=== PATIENT | female | born 1960 | race Native Hawaiian/Other Pacific Islander ===

== ENCOUNTER 2016-07-24 07:36 | Outpatient (CLI) | payer OTHER ==
[~2016-07-24 07:36] MED LIST: CELEBREX200 MG PO; DIOVAN HCT320 MG/25 PO; HYDR-3182 PO; INSU100I2 SC; LEVO0.1224 PO; METF500T PO; METOPROLOL25 M1 PO; NEURONTIN 100M100 MG PO; NEXIUM40 M1 PO; PIOG30TA PO; SIMV20TA2 PO; TRAM50TA PO
== END 2016-07-24 08:36 | disposition home or self-care (01) ==
LOC: CT 07:36
DX: M54.2 Cervicalgia (principal); M54.5 Low back pain; M51.36 Other intervertebral disc degeneration, lumbar region; M50.33 Other cervical disc degeneration, cervicothoracic region

== ENCOUNTER 2016-10-13 08:53 | Emergency (ER) | payer OTHER ==
[~2016-10-13] VITALS: Ht 157.5 cm; Wt 149.7 kg
[2016-10-13 09:01] VITALS: TEMP 97.7
[2016-10-13 10:17] LABS: PLATELET COUNT 260 K/uL (152-353)
[2016-10-13 10:22] LABS: POTASSIUM 3.7 mmol/L (3.6-5.2); SODIUM 134 mmol/L (136-145)
[2016-10-13 12:20] VITALS: BP 150/82
== END 2016-10-13 12:21 | disposition home or self-care (01) ==
LOC: ED 08:53
DX: R42 Dizziness and giddiness (principal); R11.2 Nausea with vomiting, unspecified; R19.7 Diarrhea, unspecified
CPT/HCPCS: 36415; 80053; 81000; 82150; 83036; 83690; 85027; 86318; 96361; 96374; 99284; J1885

== ENCOUNTER 2016-12-17 11:37 | Outpatient (CLI) | payer OTHER | END 2016-12-17 19:17 | disposition home or self-care (01) | LOC: RAD 11:37 | DX: M25.551 Pain in right hip (principal) ==

== ENCOUNTER 2017-03-08 13:45 | Outpatient (CLI) | payer OTHER | END 2017-03-08 19:38 | disposition home or self-care (01) | LOC: US 13:45 | DX: I82.401 Acute embolism and thrombosis of unspecified deep veins of right lower extremity (principal) ==

== ENCOUNTER 2017-06-23 08:47 | Outpatient (CLI) | payer OTHER | END 2017-06-23 21:09 | disposition home or self-care (01) | LOC: MAMMO 08:47 | DX: Z12.31 Encounter for screening mammogram for malignant neoplasm of breast (principal) ==

== ENCOUNTER 2017-08-26 12:21 | Outpatient (CLI) | payer OTHER | END 2017-08-26 22:19 | disposition home or self-care (01) | LOC: RAD 12:21 | DX: M47.812 Spondylosis without myelopathy or radiculopathy, cervical region (principal) ==

== ENCOUNTER 2019-08-01 14:33 | Outpatient (CLI) | payer OTHER | END 2019-08-01 19:33 | disposition home or self-care (01) | LOC: MAMMO 14:33 | DX: Z12.31 Encounter for screening mammogram for malignant neoplasm of breast (principal) ==

== ENCOUNTER 2019-08-19 15:47 | Outpatient (CLI) | payer OTHER | END 2019-08-19 20:38 | disposition home or self-care (01) | LOC: LAB 15:47 | DX: K59.1 Functional diarrhea (principal) | CPT/HCPCS: 82272; 82705; 83630; 87015; 87045; 87324; 87328; 87329; 87449; 87899 ==

== ENCOUNTER 2019-08-28 09:00 | Observation (INO) | payer OTHER ==
[~2019-08-28] VITALS: Ht 154.9 cm; Wt 125.4 kg
[2019-08-28 10:44] LABS: PLATELET COUNT 276 K/uL (152-353)
[2019-08-28 11:17] LABS: POTASSIUM 4.1 mmol/L (3.6-5.2)
[2019-08-28 18:33] VITALS: BP 133/79; TEMP 97.6; Ht 154.9 cm; Wt 125.4 kg
[2019-08-28] MEDS ORDERED: LEVO0.1224 PO (18:55)
[2019-08-28] MEDS ORDERED: LEVO0.0723 PO (18:58)
[2019-08-28 20:00] VITALS: BP 122/65; TEMP 98.5
[2019-08-28] MEDS ORDERED: DICY10SY PO (21:05)
[2019-08-28] MEDS ORDERED: EC-NAPROSYN500 MG PO (21:09)
[2019-08-28 23:58] VITALS: BP 135/77; TEMP 98.3
[2019-08-29 04:00] VITALS: BP 133/66; TEMP 98.3
[2019-08-29 08:00] VITALS: BP 157/68; TEMP 97.4
[2019-08-29 12:00] VITALS: BP 154/76; TEMP 97.7
[2019-08-29 16:00] VITALS: BP 154/65; TEMP 98.4
[2019-08-29 16:40] LABS: PLATELET COUNT 209 K/uL (152-353)
[2019-08-29 16:43] LABS: POTASSIUM 3.8 mmol/L (3.6-5.2)
== END 2019-08-29 20:17 | disposition home or self-care (01) ==
LOC: MED/SURG 09:00
PROVIDERS: ADMIT Family Medicine
DX: E86.0 Dehydration (principal); R11.10 Vomiting, unspecified; R19.7 Diarrhea, unspecified; E13.49 Other specified diabetes mellitus with other diabetic neurological complication; I10 Essential (primary) hypertension; E03.8 Other specified hypothyroidism; E78.2 Mixed hyperlipidemia; E66.9 Obesity, unspecified; E11.65 Type 2 diabetes mellitus with hyperglycemia; J11.2 Influenza due to unidentified influenza virus with gastrointestinal manifestations
CPT/HCPCS: 80053; 81000; 81002; 82948; 83735; 85027; 87015; 87045; 87077; 87086; 87088; 87186; 87324; 87328; 87329; 87449; 87899; 96361; 96365; 96372; 96374; 96375; 99220; G0378; G0379; J1815; J2405; J2765; J3475; J3490

== ENCOUNTER 2019-09-05 11:13 | Inpatient (IN) | payer OTHER ==
[~2019-09-05] VITALS: Ht 154.9 cm; Wt 141.7 kg
[2019-09-05] VITALS (11 sets, daily range): BP systolic 110–141; BP diastolic 46–72; TEMP 98.5–98.9; Ht 154.9 cm; Wt 141.7 kg
[~2019-09-05 11:13] MED LIST changes: +DICY10SY PO; +EC-NAPROSYN500 MG PO; +LEVO0.0723 PO
[2019-09-05 13:30] LABS: POTASSIUM 4.1 mmol/L (3.6-5.2)
[2019-09-05 13:34] LABS: PLATELET COUNT 175 K/uL (152-353)
[2019-09-06] VITALS: BP 102/44; TEMP 98.8
[2019-09-06 04:00] VITALS: BP 142/55; TEMP 100.5
[2019-09-06 05:50] LABS: POTASSIUM 3.5 mmol/L (3.6-5.2)
[2019-09-06 05:56] LABS: PLATELET COUNT 136 K/uL (152-353)
[2019-09-06 08:00] VITALS: BP 96/48; TEMP 99.2
[2019-09-06 11:05] LABS: POTASSIUM 3.4 mmol/L (3.6-5.2)
[2019-09-06 12:00] VITALS: BP 122/60; TEMP 97.9
[2019-09-06 16:00] VITALS: BP 134/51; TEMP 98.2
[2019-09-06 17:41] LABS: POTASSIUM 3.3 mmol/L (3.6-5.2)
[2019-09-06 17:44] LABS: PLATELET COUNT 141 K/uL (152-353)
[2019-09-06 20:00] VITALS: BP 87/50; TEMP 99.9
[2019-09-07] VITALS (7 sets, daily range): BP systolic 89–153; BP diastolic 34–67; TEMP 98.1–98.8
[2019-09-07 05:40] LABS: PLATELET COUNT 136 K/uL (152-353)
[2019-09-07 05:58] LABS: POTASSIUM 3.7 mmol/L (3.6-5.2)
[2019-09-07 12:44] LABS: POTASSIUM 3.7 mmol/L (3.6-5.2)
[2019-09-08 03:59] VITALS: BP 127/52; TEMP 99.7
[2019-09-08 08:00] VITALS: BP 128/61; TEMP 98.4
[2019-09-08 08:37] LABS: PLATELET COUNT 105 K/uL (152-353)
[2019-09-08 08:53] LABS: POTASSIUM 3.3 mmol/L (3.6-5.2)
[2019-09-08 16:00] VITALS: BP 143/69; TEMP 98.4
[2019-09-08 20:00] VITALS: BP 139/65; TEMP 99
[2019-09-09] VITALS: BP 149/74; TEMP 99.8
[2019-09-09 04:00] VITALS: BP 134/60; TEMP 98.5
[2019-09-09 05:02] LABS: PLATELET COUNT 128 K/uL (152-353); POTASSIUM 3.2 mmol/L (3.6-5.2)
[2019-09-09 08:00] VITALS: BP 140/59; TEMP 98.3
[2019-09-09 12:00] VITALS: BP 157/74; TEMP 97.9
[2019-09-09 16:00] VITALS: BP 153/67; TEMP 97.6
[2019-09-09 19:55] VITALS: BP 145/60; TEMP 99
[2019-09-10] VITALS: BP 133/57; TEMP 98.2
[2019-09-10 04:00] VITALS: BP 145/63; TEMP 98.8
[2019-09-10 05:27] LABS: PLATELET COUNT 166 K/uL (152-353)
[2019-09-10 05:46] LABS: POTASSIUM 3.5 mmol/L (3.6-5.2)
[2019-09-10 08:00] VITALS: BP 130/59; TEMP 98.1
[2019-09-10 12:00] VITALS: BP 149/57; TEMP 98
[2019-09-10] MEDS ORDERED: METFTAB PO (18:07)
[2019-09-10] MEDS ORDERED: LANTUS100 UNIT/M SC (18:09)
[2019-09-10] MEDS ORDERED: TRAMADOL HYDROC50 MG PO (18:11)
[2019-09-10] MEDS ORDERED: MECLIZINE25 MG PO (18:12)
[2019-09-10] MEDS ORDERED: CLARITIN10 MG PO (18:12)
[2019-09-10] MEDS ORDERED: XYZAL ALLERGY 245 MG PO (18:15)
[2019-09-10] MEDS ORDERED: BUDE1AER5 PO (18:17)
[2019-09-10] MEDS ORDERED: PROAIR HFA108 MCG/AC PO (18:22)
[2019-09-10] MEDS ORDERED: ALBU0.042 PO (18:23)
[2019-09-10] MEDS ORDERED: CARAFATE1 GM/10 ML PO (18:28)
[2019-09-10] MEDS ORDERED: CELEXA20 MG PO (18:29)
[2019-09-10] MEDS ORDERED: FLONASE AL50 MCG/ACT NAS (18:30)
[2019-09-10] MEDS ORDERED: SIMV20TA2 PO (18:31)
[2019-09-10 20:00] VITALS: BP 145/58; TEMP 98.1
[2019-09-11] VITALS: BP 149/73; TEMP 98.3
[2019-09-11 04:00] VITALS: BP 146/68; TEMP 98.6
[2019-09-11 06:32] LABS: PLATELET COUNT 220 K/uL (152-353)
[2019-09-11 06:39] LABS: POTASSIUM 3.5 mmol/L (3.6-5.2)
[2019-09-11 08:00] VITALS: BP 144/59; TEMP 98.8
[2019-09-11 12:00] VITALS: BP 144/59; TEMP 98.8
[2019-09-11 16:00] VITALS: BP 132/69; TEMP 98.9
[2019-09-11 20:00] VITALS: BP 158/69; TEMP 98.2
[2019-09-12 00:18] VITALS: BP 135/68; TEMP 99.4
[2019-09-12 04:00] VITALS: BP 149/58; TEMP 98.6
[2019-09-12 05:47] LABS: PLATELET COUNT 296 K/uL (152-353)
[2019-09-12 06:19] LABS: POTASSIUM 4.7 mmol/L (3.6-5.2)
[2019-09-12 08:00] VITALS: BP 147/79; TEMP 97.8
[2019-09-12 12:00] VITALS: BP 128/52; TEMP 97.8
[2019-09-12 16:00] VITALS: BP 152/72; TEMP 98.1
[2019-09-12 20:00] VITALS: BP 164/74; TEMP 98.4
[2019-09-13] VITALS: BP 143/66; TEMP 98.4
[2019-09-13 04:00] VITALS: BP 160/73; TEMP 97.8
[2019-09-13 06:13] LABS: PLATELET COUNT 350 K/uL (152-353)
[2019-09-13 06:55] LABS: POTASSIUM 4.5 mmol/L (3.6-5.2)
[2019-09-13 08:00] VITALS: BP 154/71; TEMP 98.3
[2019-09-13 12:00] VITALS: BP 165/82; TEMP 98.2
== END 2019-09-13 11:14 | disposition swing bed (61) | DRG 872 ==
LOC: ED 11:13 → MED/SURG 20:10
PROVIDERS: Family Medicine; ADMIT Family Medicine
DX: A41.51 Sepsis due to Escherichia coli [E. coli] (principal); N10 Acute pyelonephritis; E87.1 Hypo-osmolality and hyponatremia; D72.828 Other elevated white blood cell count; R11.2 Nausea with vomiting, unspecified; E11.65 Type 2 diabetes mellitus with hyperglycemia; E86.0 Dehydration; E03.8 Other specified hypothyroidism; E11.42 Type 2 diabetes mellitus with diabetic polyneuropathy; E66.01 Morbid (severe) obesity due to excess calories; B96.20 Unspecified Escherichia coli [E. coli] as the cause of diseases classified elsewhere; E87.6 Hypokalemia; K58.9 Irritable bowel syndrome, unspecified; L05.91 Pilonidal cyst without abscess; D64.89 Other specified anemias
CPT/HCPCS: 36415; 36600; 80048; 80053; 81000; 81002; 82550; 82805; 82947; 82962; 83605; 83735; 83880; 84100; 84132; 85007; 85027; 87015; 87040; 87045; 87070; 87077; 87086; 87088; 87186; 87205; 87324; 87328; 87329; 87449; 87493; 87899; 94760; 96360; 96361; 96365; 96375; 96376; 99284; J1956; J1815; J1940; J2405; J2543; J2550; J3475; J3480; J3490

== ENCOUNTER 2019-09-13 11:15 | Inpatient (IN) | payer OTHER ==
[~2019-09-13] VITALS: Ht 154.9 cm; Wt 126.1 kg
[~2019-09-13 11:15] MED LIST changes: +ALBU0.042 PO; +BUDE1AER5 PO; +CARAFATE1 GM/10 ML PO; +CELEXA20 MG PO; +CLARITIN10 MG PO; +FLONASE AL50 MCG/ACT NAS; +LANTUS100 UNIT/M SC; +MECLIZINE25 MG PO; +METFTAB PO; +PROAIR HFA108 MCG/AC PO; +TRAMADOL HYDROC50 MG PO; +XYZAL ALLERGY 245 MG PO
[2019-09-13 16:58] LABS: PLATELET COUNT 387 K/uL (152-353)
[2019-09-13 17:07] LABS: POTASSIUM 4.2 mmol/L (3.6-5.2)
[2019-09-13 20:00] VITALS: BP 174/71; TEMP 99.2
[2019-09-14 10:04] VITALS: BP 174/71; TEMP 37.3; Ht 154.9 cm; Wt 126.1 kg
[2019-09-14 10:25] VITALS: BP 138/51; TEMP 98.5
[2019-09-14 20:00] VITALS: BP 161/75; TEMP 99.4
[2019-09-15 20:00] VITALS: BP 142/51; TEMP 98.1
[2019-09-16 08:00] VITALS: BP 146/68; TEMP 98.4
[2019-09-16 20:29] VITALS: BP 157/51; TEMP 97.7
[2019-09-17 08:00] VITALS: BP 153/70; TEMP 98.2
[2019-09-17 19:35] VITALS: BP 149/56; TEMP 97.8
[2019-09-18 08:00] VITALS: BP 158/70; TEMP 97.9
[2019-09-18 20:00] VITALS: BP 150/60; TEMP 98.5
[2019-09-19 08:00] VITALS: BP 152/55; TEMP 98.5
[2019-09-19 20:00] VITALS: BP 170/68; TEMP 98.9
[2019-09-20 08:00] VITALS: BP 156/60; TEMP 99.5
[2019-09-20 20:00] VITALS: BP 161/59; TEMP 98.1
[2019-09-21 07:15] LABS: POTASSIUM 4.2 mmol/L (3.6-5.2)
[2019-09-21 08:09] VITALS: BP 119/52; TEMP 98.5
[2019-09-21 08:32] LABS: PLATELET COUNT 286 K/uL (152-353)
[2019-09-21 19:49] VITALS: BP 168/71; TEMP 99
[2019-09-22 08:00] VITALS: BP 120/42; TEMP 98.2
[2019-09-22 20:00] VITALS: BP 98/53; TEMP 99.5
[2019-09-23 08:00] VITALS: BP 121/50; TEMP 98.3
[2019-09-23 19:56] VITALS: BP 140/40; TEMP 99.2
[2019-09-24 08:00] VITALS: BP 133/41; TEMP 98.7
[2019-09-24 20:00] VITALS: BP 127/68; TEMP 99.3
[2019-09-25 08:00] VITALS: BP 128/43; TEMP 97.9
[2019-09-25 20:00] VITALS: BP 108/57; TEMP 97.8
[2019-09-26 08:00] VITALS: BP 126/55; TEMP 98.3
[2019-09-26 20:00] VITALS: BP 137/38; TEMP 98.7
[2019-09-27 04:58] LABS: POTASSIUM 4.7 mmol/L (3.6-5.2)
[2019-09-27 08:28] VITALS: BP 131/59; TEMP 99.1
[2019-09-27 09:12] LABS: PLATELET COUNT 269 K/uL (152-353)
[2019-09-27 09:18] LABS: POTASSIUM 4.2 mmol/L (3.6-5.2)
[2019-09-27 19:56] VITALS: BP 99/46; TEMP 97.9
[2019-09-28 07:49] LABS: POTASSIUM 4.5 mmol/L (3.6-5.2)
[2019-09-28 08:00] VITALS: BP 107/33; TEMP 97.4
[2019-09-28 20:13] VITALS: BP 139/61; TEMP 98.6
[2019-09-29 08:00] VITALS: BP 130/55; TEMP 98.1
[2019-09-29 19:41] VITALS: BP 132/54; TEMP 98.1
[2019-09-30 08:00] VITALS: BP 134/52; TEMP 97.9
[2019-09-30 20:00] VITALS: BP 111/60; TEMP 98.6
[2019-10-01 08:00] VITALS: BP 135/68; TEMP 98.3
[2019-10-01 19:59] VITALS: BP 143/62; TEMP 98.5
[2019-10-02 08:00] VITALS: BP 128/38; TEMP 98.3
[2019-10-02 20:00] VITALS: BP 143/75; TEMP 97.9
[2019-10-03 08:00] VITALS: BP 124/45; TEMP 98
== END 2019-10-03 17:40 | disposition home or self-care (01) | DRG 555 ==
LOC: MED/SURG 11:15
PROVIDERS: ADMIT Family Medicine
DX: M62.81 Muscle weakness (generalized) (principal); J18.8 Other pneumonia, unspecified organism; A41.89 Other specified sepsis; N10 Acute pyelonephritis; E87.1 Hypo-osmolality and hyponatremia; I10 Essential (primary) hypertension; E11.9 Type 2 diabetes mellitus without complications; S91.209A Unspecified open wound of unspecified toe(s) with damage to nail, initial encounter; E03.8 Other specified hypothyroidism; K21.9 Gastro-esophageal reflux disease without esophagitis; J44.9 Chronic obstructive pulmonary disease, unspecified
CPT/HCPCS: 80048; 80053; 81000; 83880; 85027; 87081; 87502; 87651; 94640; 94664; 94667; 94668; 94760; J1815; J1956

== ENCOUNTER 2020-06-28 11:47 | Outpatient (CLI) | payer OTHER | END 2020-06-28 20:06 | disposition home or self-care (01) | LOC: RAD 11:47 | PROVIDERS: ATTEND Family Medicine | DX: R52 Pain, unspecified (principal); W19.XXXA Unspecified fall, initial encounter ==

== ENCOUNTER 2020-07-05 10:43 | Outpatient (CLI) | payer OTHER | END 2020-07-05 19:20 | disposition home or self-care (01) | LOC: CT 10:43 | PROVIDERS: ATTEND Family Medicine | DX: R51.9 Headache, unspecified (principal) ==

== ENCOUNTER 2020-10-28 09:36 | Outpatient (CLI) | payer OTHER | END 2020-10-28 19:11 | disposition home or self-care (01) | LOC: RAD 09:36 | PROVIDERS: ATTEND Nurse Practitioner Family | DX: J44.1 Chronic obstructive pulmonary disease with (acute) exacerbation (principal) ==

== ENCOUNTER 2021-01-14 10:50 | Outpatient (CLI) | payer OTHER ==
[2021-01-21 16:51] LABS: PLATELET COUNT 240 K/uL (152-353)
== END 2021-01-14 17:00 | disposition home or self-care (01) ==
LOC: LABW 10:50
PROVIDERS: ATTEND Internal Medicine Pulmonary Disease
DX: J45.50 Severe persistent asthma, uncomplicated (principal)
CPT/HCPCS: 36415; 85027

== ENCOUNTER 2021-05-06 11:25 | Inpatient (IN) | payer OTHER ==
[~2021-05-06] VITALS: Ht 154.9 cm; Wt 151.7 kg
--- NOTE | 2021-05-06 12:04 | NUR ---
PATIENT BROUGHT VIA WHEELCHAIR DIRECT ADMIT FROM . PATIENT TAKEN TO ROOM 1108. PATIENT ORIENTED TO ROOM AND CALL LIGHT. SHIFT ASSESSMENT COMPLETED. IV 22G X1 ATTEMPT STARTED TO LAC; 24G X1 ATTEMPT STARTED TO LEFT FOREARM. NS 500 ML BOLUS STARTED AT THIS TIME. BED LOCKED IN LOW POSITION, SIDE RAILS UP X2, CALL POLLOCK WITHIN REACH.
[2021-05-06 12:24] VITALS: BP 156/80; TEMP 98.2; Ht 154.9 cm; Wt 151.7 kg
[2021-05-06 12:36] LABS: PLATELET COUNT 279 K/uL (152-353)
[2021-05-06 13:24] LABS: POTASSIUM 4.9 mmol/L (3.6-5.2)
[2021-05-06 16:00] VITALS: BP 168/70; TEMP 98
--- NOTE | 2021-05-06 17:07 | NUR ---
ON ADMISSION ASSESSMENT PATIENT HAS MULTIPLE INSECT BITES TO BOTH UPPER AND LOWER EXTREMITIES. 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 PATIENT STATES SHE WAS TAKING SOME DIFLUCAN BY MOUTH AND NYSTATIN CREAM BUT IT RASH IS STILL IN ACTIVE. RASH HAS FOUL ODOR AND IS SLIGHTLY RED IN COLOR.
[2021-05-06 20:19] VITALS: BP 170/62; TEMP 97.7
--- NOTE | 2021-05-06 22:53 | NUR ---
LATE ENTRY: AT 2100 DR BILLY WAS CONTACTED ABOUT HER PATIENTS BLOOD SUGER BEING 539. MD ORDERED 20U OF REGULAR INSULIN AND START BACK PATIENT HOME MEDS. MD ORDERED PATIENT OME MED OF NOVALOG PEN TO BE HELD AND US TO CONTINUE THE COURSE OF THE SLIDING SCALE WITH REGULAR INSULIN. ALSO ORDERED LEVAMIR 50 AT BT. PATIENT DENIES ANY PAIN, SOB, OR DIZZINESS
[2021-05-07] VITALS (7 sets, daily range): BP systolic 106–168; BP diastolic 58–82; TEMP 97.7–98.7
--- NOTE | 2021-05-07 00:32 | NUR ---
PATIENTS BLOOD SUGER WAS ASSESED AND PATIENT BS IS TRENDING DOWN AND NOW IS 366. NEW TELEMETRY STICKER WERE APPLIED
[2021-05-07 05:35] LABS: PLATELET COUNT 246 K/uL (152-353)
[2021-05-07 05:56] LABS: POTASSIUM 4.1 mmol/L (3.6-5.2)
--- NOTE | 2021-05-07 06:45 | NUR ---
PATIENTS TELEMETRY HAS BEEN REAPPLIED 4 TIMES THROUGHOUT THE NIGHT AND TEACHING HAS BEEN STARTED. PATIENT WILL NOT KEEP THE TELEMETRY LEADS ON. WILL ATTEMPT TO REAPPLY TELE
[2021-05-07] MEDS ORDERED: PAROXETINE40 MG PO (08:19)
--- NOTE | 2021-05-07 15:20 | NUR ---
PT'S BS REASSESSED AT THIS TIME NOTED TO BE 483 VIA FINGER STICK.
--- NOTE | 2021-05-07 15:30 | NUR ---
DR. BILLY NOTIFIED OF PT'S BS. INFORMED DR. BILLY OF WHAT PT HAS ATE AND DRANK TODAY. REC'D ORDERS TO GIVE PT 20 UNITS OF REGULAR INSULIN. AND NOTIFY MANAGEMENT OF PT'S DIET.
--- NOTE | 2021-05-07 15:40 | NUR ---
NOTIFIED UR OF DR. BILLY AND PT'S REQUEST. LUIS SOTO, UR INTO TALK WITH PATIENT ABOUT POSSIBILITIES.
[2021-05-07 16:49] LABS: POTASSIUM 4.2 mmol/L (3.6-5.2)
--- NOTE | 2021-05-07 16:53 | NUR ---
NOTIFIED DR. BILLY CRITICAL BS 458 AFTER 2O UNITS REGULAR INSULIN PER HER ORDER.
--- NOTE | 2021-05-07 17:02 | NUR ---
SPOKE WITH DR. BILLY ABOUT PT'S BS AND NEED OF GIVING MORE INSULIN TO BRING IT DOWN. DR. BILLY STATES " WE WILL WAIT UNTIL SHE GETS NEXT BLOOD DRAW, MAKE SURE SUPPER IS LOW CARB PLEASE GIVE LEVEMIR EARLY" INFORMED HER OF [address] BILLY THEN STATES " NEED A BETTER HOLD ON BS INCREASED IVF TO 150ML/HR AND DON'T LET IT RUN OUT." ASKED IF SHE WANTED REPEAT LABS CLARIFIED THAT SHE WROTE ORDERS FOR AM LABS BUT NO OTHERS AFTER 1600 FOR BS. NO FURTHER ORDERS AT THIS TIME. WILL COVER PT'S BS BASED ON SLIDING SCALE AT THIS TIME.
--- NOTE | 2021-05-07 21:45 | NUR ---
22 G TO RIGHT FOREARM INITIATED X'S TWO ATTEMPTS AT THIS TIME. NO EDEMA OR ERRYTHEMA NOTED OR EXPRESSED BY PT AT THIS TIME. SITE PATENT AND ADEQUATE BLOOD RETURN. LAC IV D/C'D A TTHIS TIME. PRESSURE APPLIED.
[2021-05-08 04:00] VITALS: BP 125/72; TEMP 98.3
[2021-05-08 05:10] LABS: PLATELET COUNT 199 K/uL (152-353)
[2021-05-08 05:25] LABS: POTASSIUM 4.4 mmol/L (3.6-5.2)
[2021-05-08 08:00] VITALS: BP 158/64; TEMP 97.8
--- NOTE | 2021-05-08 08:30 | NUR ---
PT'S BS NOTED TO BE 343 VIA FINGER STICK. PT'S BS COVERED WITH REGULAR INSULIN PER SLIDING SCALE.
--- NOTE | 2021-05-08 09:00 | NUR ---
PT REC'D HER BREAKFAST AT THIS TIME. PT NOTED TO HAVE EGGS, 2 SAUSAGE LINKS, ONE DANNON LIGHT AND FIT YOGURT, 2% MILK AND COFFEE, AND APPLE JUICE ON HER TRAY. ORANGE JUICE AND YOGURT TAKEN OFF PT'S TRAY AND DISCUSSED WITH PT ABOUT NOT EATING AND DRINKING IT DUE TO IT HAVING SUGAR AND HOW IT WOULD AFFECT HER BLOOD SUGAR. PT VERBALIZED UNDERSTANDING STATING "PLEASE TAKE IT OUT OF MY ROOM, OUT OF SITE OUT OF MIND"
--- NOTE | 2021-05-08 11:30 | NUR ---
ANNETTE MONSIVAIS, PCT REPORTS PT'S BLOOD SUGAR VIA FINGER STICK 434. GLUCOSE LAB VERIFICATION ORDERED AT THIS TIME.
--- NOTE | 2021-05-08 11:36 | NUR ---
SPOKE WITH DR. BILLY. REPORTED PT'S URINE CULTURE. VERIFIED IT IS SENSITIVE TO ROCEPHIN THAT SHE IS CURRENTLY REC'ING. REPORTED PT'S FINGER STICK GLUCOSE AND INFORMED OF WHAT PT REC'D FOR BREAKFAST. REC'D ORDERS TO GIVE PT LEVEMIR 20 UNITS SC NOW AND SLIDING SCALE 15 UNITS. PT WILL GO HOME WITH LEVEMIR 50 UNITS AT BT AND LEVEMIR 20 UNITS IN THE AM.
[2021-05-08 12:00] VITALS: BP 165/74; TEMP 97.3
[2021-05-08 16:00] VITALS: BP 162/91; BP 165/74; TEMP 97.3; TEMP 98
[2021-05-08 20:00] VITALS: BP 152/57; TEMP 97.8
[2021-05-09] VITALS: BP 102/66; TEMP 97.7
[2021-05-09 04:00] VITALS: BP 149/55; TEMP 97.7
[2021-05-09 04:47] LABS: PLATELET COUNT 193 K/uL (152-353)
[2021-05-09 04:54] LABS: POTASSIUM 4.6 mmol/L (3.6-5.2)
[2021-05-09 08:00] VITALS: BP 153/51; TEMP 97.9
== END 2021-05-09 16:35 | disposition home or self-care (01) | DRG 640 ==
LOC: MED/SURG 11:25
PROVIDERS: ADMIT Family Medicine; ATTEND Family Medicine
DX: E87.1 Hypo-osmolality and hyponatremia (principal); E11.00 Type 2 diabetes mellitus with hyperosmolarity without nonketotic hyperglycemic-hyperosmolar coma (NKHHC); N39.0 Urinary tract infection, site not specified; H81.10 Benign paroxysmal vertigo, unspecified ear; E66.01 Morbid (severe) obesity due to excess calories; E88.89 Other specified metabolic disorders; K12.1 Other forms of stomatitis; K21.9 Gastro-esophageal reflux disease without esophagitis; E87.6 Hypokalemia; Z91.14 Patient's other noncompliance with medication regimen; E86.0 Dehydration
CPT/HCPCS: 36415; 80048; 80053; 81000; 82550; 82947; 82948; 83605; 83735; 84100; 84443; 84484; 85027; 87040; 87077; 87086; 87088; 87186; 87635; 94760; 96365; 96372; J0696; J1450; J1815; J3475; U0003

== ENCOUNTER 2021-05-14 09:13 | Outpatient (CLI) | payer OTHER ==
[~2021-05-14] VITALS: Ht 154.9 cm; Wt 152.9 kg
[~2021-05-14 09:13] MED LIST changes: +PAROXETINE40 MG PO
== END 2021-05-14 19:16 | disposition home or self-care (01) ==
LOC: INF 09:13
PROVIDERS: ATTEND Family Medicine
DX: Z23 Encounter for immunization (principal); U07.1 COVID-19
CPT/HCPCS: 96365; M0244

== ENCOUNTER 2021-06-06 11:14 | Outpatient (CLI) | payer OTHER ==
[2021-06-06 11:52] LABS: PLATELET COUNT 207 K/uL (152-353)
[2021-06-06 13:04] LABS: POTASSIUM 3.6 mmol/L (3.6-5.2)
== END 2021-06-06 20:17 | disposition home or self-care (01) ==
LOC: LABW 11:14
PROVIDERS: ATTEND Nurse Practitioner Family
DX: U07.1 COVID-19 (principal)
CPT/HCPCS: 36415; 80053; 82728; 85027; 85379; 86140

== ENCOUNTER 2021-06-19 13:10 | Outpatient (CLI) | payer OTHER | END 2021-06-19 19:13 | disposition home or self-care (01) | LOC: RESP 13:10 | PROVIDERS: ATTEND Nurse Practitioner Family | DX: K43.2 Incisional hernia without obstruction or gangrene (principal); E66.01 Morbid (severe) obesity due to excess calories; Z68.44 Body mass index [BMI] 60.0-69.9, adult; Z98.84 Bariatric surgery status; G56.03 Carpal tunnel syndrome, bilateral upper limbs; Z87.891 Personal history of nicotine dependence; Z09 Encounter for follow-up examination after completed treatment for conditions other than malignant neoplasm; G56.23 Lesion of ulnar nerve, bilateral upper limbs | CPT/HCPCS: 36415; 82565; 84520; 95885; 95911; Q9963 ==

== ENCOUNTER 2021-09-25 15:29 | Emergency (ER) | payer OTHER ==
[~2021-09-25] VITALS: Ht 154.9 cm; Wt 152.9 kg
[2021-09-25 15:38] VITALS: TEMP 97.4
[2021-09-25 16:07] LABS: PLATELET COUNT 291 K/uL (152-353)
[2021-09-25 16:18] LABS: POTASSIUM 3.1 mmol/L (3.6-5.2)
[2021-09-25 16:33] LABS: PARTIAL THROMBOPLASTIN TIME 26.4 SECONDS (24.5-33.6)
[2021-09-25 18:41] VITALS: BP 112/50
== END 2021-09-25 18:45 | disposition short-term general hospital (02) ==
LOC: ED 15:32
PROVIDERS: Hospitalist
PROC: 0T9B70Z Drainage of Bladder with Drainage Device, Via Natural or Artificial Opening (ICD-10-PCS; principal; 2021-09-25)
DX: I63.89 Other cerebral infarction (principal); G81.94 Hemiplegia, unspecified affecting left nondominant side; N39.0 Urinary tract infection, site not specified; E11.65 Type 2 diabetes mellitus with hyperglycemia; Z79.4 Long term (current) use of insulin; Z79.84 Long term (current) use of oral hypoglycemic drugs; F17.210 Nicotine dependence, cigarettes, uncomplicated; Z11.52 Encounter for screening for COVID-19
CPT/HCPCS: 51702; 80053; 80320; 81000; 82550; 83880; 84484; 85027; 85610; 85730; 87077; 87086; 87088; 87186; 87635; 92977; 93005; 96360; 96361; 96365; 96366; 96375; 99285; J0696; J1815; J2270; J2997; U0003

== ENCOUNTER 2021-10-07 14:12 | Outpatient (CLI) | payer OTHER ==
[2021-10-07 14:31] LABS: PLATELET COUNT 276 K/uL (152-353)
[2021-10-07 14:49] LABS: POTASSIUM 4.7 mmol/L (3.6-5.2)
== END 2021-10-07 19:13 | disposition home or self-care (01) ==
LOC: LABW 14:12
PROVIDERS: ATTEND Nurse Practitioner Family
DX: E11.65 Type 2 diabetes mellitus with hyperglycemia (principal); R60.0 Localized edema
CPT/HCPCS: 36415; 80053; 83735; 83880; 85027

== ENCOUNTER 2021-10-29 09:29 | Outpatient (CLI) | payer OTHER | END 2021-10-29 21:34 | disposition home or self-care (01) | LOC: RESP 09:29 | PROVIDERS: ATTEND Nurse Practitioner Family | DX: R60.0 Localized edema (principal) ==